=== PATIENT | female | born 1970 | race Caucasian/White ===

== ENCOUNTER 2021-03-05 18:20 | Inpatient (IN) | payer OTHER, SELFPAY ==
--- NOTE | ~2021-03-05 | XR_ITS ---
XR chest 1V portable DATE: 03/05/2021 18:54 INDICATION: Shortness of breath, fever, cough. Possible Covid exposure. TECHNIQUE: Portable upright AP chest on 03/05/2021 at 1848 hours COMPARISON: None FINDINGS: There are patchy bilateral pulmonary infiltrates or interstitial fibrosis, favoring the per ipheral lung moody and left lower lung. Normal heart size. No hilar or mediastinal enlargement. No pleural effusion or pulmonary vascular con gestion or pneumothorax. Included skeletal structures are unremarkable. IMPRESSION: Patchy bilateral interstitial infiltrate or fibrotic change, favoring the peripheral lung moody and left lower lung. Differential diagnosis includes interstitial fibrosis and/or pneumonia Reviewed, dictated and finalized at location A. IMPRESSION: Patchy bilateral interstitial infiltrate or fibrotic change, favori ng the peripheral lung moody and left lower lung. Differential diagnosis inclu rossy interstitial fibrosis and/or pneumonia
--- NOTE | ~2021-03-05 | XR_ITS ---
EXAMINATION: XR chest 1V portable DATE: 03/11/2021 05:54 INDICATION: Shortness of breath TECHNIQUE: frontal view of the chest was obtained. COMPARISON: Chest radiograph dated 03/05/2021 FINDINGS: Diffuse increased interstitial opacities with small patchy peripheral predominant opacities in the mi d and lower lung zones, left greater than right. No pleural effusion or pneumothorax. The cardiomedia stinal silhouette is within normal limits for AP technique. Old healed left sixth rib fracture. IMPRESSION: 1. Minimal change in mild diffuse bilateral lung disease which could represent chronic interstitial l jasmyne disease or in the acute setting pulmonary edema or pneumonia. Reviewed, dictated and finalized at location A. IMPRESSION: 1. Minimal change in mild diffuse bilateral lung disease which could represent chronic interstitial lung disease or in the acute setting pulmonary edema or pn eumonia.
[2021-03-05 18:21] VITALS: BP 102/66; PULSE 88; RESP 22; TEMP 38.4; O2SAT 94
--- NOTE | 2021-03-05 18:26 | ECG_ITS ---
Measurements Intervals [place] Rate: 87 P: 120 PA: 137 QRS: 161 QRSD: 88 T: 152 QT: 355 QTc: 428 Interpretive Statements SINUS RHYTHM ARM LEADS REVERSED INCOMPLETE RIGHT BUNDLE BRANCH BLOCK LOW VOLTAGE- PRECORDIAL LEADS BORDERLINE T WAVE ABNORMALITY- ANT/INF LEADS BORDERLINE ECG Electronically Signed On 03-05-2021 19:29:44 CDT by Alfredo Lucio D.O.
[2021-03-05 18:41] LABS: Basophils Percent Auto 0.4 % (0.2-1.2); Hematocrit 42.1 % (37.0-47.0); Hemoglobin 14.1 g/dL (12.0-15.0); Immature Granulocyte Absolute 0.06 K/mm3 (0.00-0.031); Immature Granulocyte Percent A 0.7 % (0-0.5); Lymphocytes Absolute Auto 1.12 K/mm3 (0.9-3.2); Lymphocytes Percent Auto 13.1 % (18.3-44.2); Mean Corpuscular HGB Conc 33.5 g/dl (32-36); Mean Corpuscular Hemoglobin 29.3 pg (26-34); Mean Corpuscular Volume 87.3 fl (80-100); Mean Platelet Volume 9.2 fl (7.4-10.4); Monocytes Absolute Auto 0.3 K/mm3 (0.1-0.6); Monocytes Percent Auto 3.4 % (2.6-8.5); Neutrophils Absolute Auto 7.1 K/mm3 (1.3-6.7); Neutrophils Percent Auto 82.4 % (45.5-73.1); Platelet Count Result 208 k/mm3 (150-375); Red Blood Count 4.82 M/mm3 (4.2-5.4); Red Cell Distribution Width 13.2 % (11.5-14.5); White Blood Count 8.6 K/mm3 (4.5-10.0)
[2021-03-05 19:08] LABS: EDCOVIDSCREEN Positive (Negative)
[2021-03-05 19:14] VITALS: BP 103/71; PULSE 85; RESP 29; O2SAT 95
[2021-03-05 19:18] LABS: Alanine Aminotransferase 53 U/L (4-35); Albumin Level 3.8 g/dL (3.5-5.1); Alkaline Phosphatase 80 U/L (38-126); Anion Gap 10 mmol/L (8-16); Aspartate Amino Transferase 85 U/L (14-36); Bilirubin,Total 0.6 mg/dL (0.2-1.3); Blood Urea Nitrogen 17 mg/dL (7-17); Calcium 8.7 mg/dL (8.4-10.2); Carbon Dioxide 25 mmol/L (22-30); Chloride 101 mmol/L (98-107); Estimated CRCL calculation 80 ml/min; Estimated Glomerular Filt Rate > 60; Glucose 101 mg/dL (65-110); Potassium 3.9 mmol/L (3.4-5.0); Sodium 136 mmol/L (137-145)
--- NOTE | 2021-03-05 19:21 | ED.GENADULT ---
HPI - General Adult General Chief complaint: Upper Respiratory Infection Stated complaint: fever Time Seen by Provider: 03/05/21 18:29 Source: patient History of Present Illness HPI narrative: Patient is a 50 y/o female complaining severe generalized weakness starting approximately 10 days ago. She has cough, fever and SOB. There is no known alleviating or exacerbating factor. She state that she is too weak to get out of bed to go to bathroom. She states that she has not been vaccinated against COVID. EMS reports that her RA sat was 82% and she placed on O2 via nasal canula. Related Data Home Medications Medication Instructions Recorded Confirmed No Home Medications 03/05/21 03/05/21 Allergies Allergy/AdvReac Type Severity Reaction Status Date / Time oxytocin Allergy Unknown Verified 03/05/21 18:49 Review of Systems Constitutional: Constitutional: Denies chills, Reports fever(s), Denies headache(s) and Reports weakness Eyes: Eyes: Denies blurry vision ENT: Denies headache(s) and Denies neck pain Cardiovascular: Cardiovascular: Denies chest pain and Reports dyspnea Respiratory: Respiratory: Reports cough and Reports dyspnea Gastrointestinal: Gastrointestinal: Denies abdominal pain, Reports diarrhea, Denies nausea and Denies vomiting Genitourinary: Genitourinary: Denies hematuria and Denies dysuria Musculoskeletal: Musculoskeletal: Denies back pain and Denies neck pain Neurologic: Denies headache(s) and Denies weakness [facility] Social History Social History Smoking status: Never smoker Alcohol intake: never Substance use: never Gender identity (if verbalized by the patient): Female Spiritual care concerns: No Exam Const: General: no acute distress and well developed Orientation/consciousness: oriented to person, oriented to place, oriented to time and patient oriented x3 HENMT: Head: normocephalic Ears: external ears normal General nose exam: Normal external nose present Eyes: General: appearance normal, both eyes and all related structures Conjunctivae: conjunctivae normal Neck: Neck: normal visual inspection and full ROM Chest: Chest palpation & inspection: normal inspection of the chest and no tenderness Resp: Effort & Inspection: tachypneic Auscultation: clear to auscultation bilaterally Cardio: Rate: regular rate Rhythm: regular rhythm GI: GI Palp: No abdominal tenderness and Yes Soft to palpation Skin: General skin exam: normal color and turgor normal Neuro: General: oriented to person, oriented to place, oriented to time and patient oriented x3 Cognition (Neuro): normal cognition Extrem: General: normal to inspection, full ROM and no pedal edema Psych: Appearance: grossly normal Mental Status: mental status grossly normal Affect: normal affect Course Consultations Consultation #1: Discussed with Dr. Martinez, who agrees to admit. Date: 03/05/21 Time: 19:30 Vital Signs Vital signs: Vital Signs Temperature 38.4 C H 03/05/21 18:21 Pulse Rate 88 03/05/21 18:21 Respiratory Rate 22 H 03/05/21 18:21 Blood Pressure 102/66 03/05/21 18:21 Pulse Oximetry 94 03/05/21 18:21 Temperature 36.7 C 03/05/21 23:40 Pulse Rate 78 03/05/21 23:43 Respiratory Rate 18 03/05/21 23:43 Blood Pressure 117/73 03/05/21 23:40 Pulse Oximetry 93 03/05/21 23:43 Medical Decision Making Vital Signs Vital Signs: Vital Signs Temperature 38.4 C H 03/05/21 18:21 Pulse Rate 88 03/05/21 18:21 Respiratory Rate 22 H 03/05/21 18:21 Blood Pressure 102/66 03/05/21 18:21 Pulse Oximetry 94 03/05/21 18:21 Temperature 36.7 C 03/05/21 23:40 Pulse Rate 78 03/05/21 23:43 Respiratory Rate 18 03/05/21 23:43 Blood Pressure 117/73 03/05/21 23:40 Pulse Oximetry 93 03/05/21 23:43 Lab Data Result diagrams: 03/05/21 18:32 03/05/21 18:32 Labs: Lab Results
[2021-03-05] MEDS: SODIUM CHLORIDE 0.9% IV 1,000 ML 999 ML IV CONT (20:04)
[2021-03-05] MEDS: ACETAMINOPHEN 325 MG TABLET 650 MG PO (20:04)
[2021-03-05] MEDS: DEXAMETHASONE SOD PHOS INJ 4 MG/ML VIAL 6 MG IV PUSH (20:04)
--- NOTE | 2021-03-05 20:04 | PC.NURSE ---
Called lab and spoke to emanuel about adding on PT/INR 2002
[2021-03-05 20:42] LABS: INR 0.9; Prothrombin Time 12.4 Seconds (11.1-14.7)
[2021-03-05 21:10] VITALS: BP 111/65; PULSE 76; RESP 20; TEMP 36.9; O2SAT 96; BMI 28.3
[2021-03-05] MEDS: REMDESIVIR 200 MG/NS 250 ML 200 MG/250 ML BAG 250 MG IVPB (22:11)
[2021-03-05 23:40] VITALS: BP 117/73; PULSE 78; RESP 18; TEMP 36.7; O2SAT 93
[2021-03-05 23:43] VITALS: PULSE 78; RESP 18; O2SAT 93
[2021-03-06] VITALS (12 sets, daily range): BP systolic 98–109; BP diastolic 61–73; PULSE 70–79; RESP 18–22; TEMP 36.3–36.7; O2SAT 88–93
--- NOTE | 2021-03-06 01:31 | PM.IMHP ---
H&P: HPI History of Present Illness Date/Time: 03/06/21 01:31 Chief Complaint: Fatigue Narrative: This is a 50-year-old female with known significant past medical history patient presented to the emergency room she arrived by EMS and according to EMS records her saturation was in the 80s% in room air at home. EMS was called due to generalized malaise, body aches and pains ,poor appetite, fatigue ,lack of energy, generalized weakness, can not get up from her bed on her own has not been eating as result of these, she has had diarrhea abdominal pain nausea and vomiting as well. She tested positive for COVID in our emergency room. Preliminary workup was significant for chest x-ray with infiltrates. She was placed on 4 L by nasal cannula and saturating at 92% at the time of my visit. Review of Systems Review of Systems: Likely low energy fatigue general malaise muscle weakness body aches and pains diarrhea abdominal pain nausea vomiting poor appetite Constitutional: Constitutional: Reports chills, Reports fatigue, Reports fever(s), Reports lethargy, Reports malaise, Reports poor appetite and Reports weakness Eyes: Eyes: Denies change in vision ENT: Denies dysphagia, Denies nasal congestion, Denies nasal discharge, Denies nasal obstruction and Denies odynophagia Cardiovascular: Cardiovascular: Denies edema, Denies irregular heart rhythm, Denies claudication, Denies leg edema, Denies radiating jaw, neck or arm pain, Denies palpitations and Reports dyspnea Respiratory: Respiratory: Denies cough and Reports dyspnea Gastrointestinal: Gastrointestinal: Reports diarrhea, Reports nausea and Reports vomiting Genitourinary: Genitourinary: Reports no additional female genitourinary complaints Musculoskeletal: Musculoskeletal: Reports myalgias and Reports muscle weakness Integumentary/Breasts: Skin/Breast: Reports system reviewed and no additional complaints, except as docu Neurologic: Reports system reviewed and no additional complaints, except as documented Psychiatric: Psychiatric: Reports no additional psychiatric complaints Endocrine: Endocrine: Reports no additional endocrine complaints Hematologic/Lymphatic: Hematologic/Lymphatic: Reports no additional hematologic/lymphatic complaints Allergic/Immunologic: Allergic/Immunologic: Reports no additional allergic/immunologic complaints [facility] Social History Social History Smoking status: Never smoker Alcohol intake: never Substance use: never Gender identity (if verbalized by the patient): Female Spiritual care concerns: No Meds Home Medications and Allergies Home Medications Medication Instructions Recorded Confirmed Type No Home Medications 03/05/21 03/05/21 History Allergies Allergy/AdvReac Type Severity Reaction Status Date / Time oxytocin Allergy Unknown Verified 03/05/21 18:49 Vital Signs Vital Signs - 24 hr 03/05/21 18:21 03/05/21 19:14 03/05/21 21:10 Temperature 101.2 F H 98.5 F Pulse Rate 88 85 76 Respiratory Rate 22 H 29 H 20 Blood Pressure 102/66 103/71 111/65 Pulse Oximetry 94 95 96 03/05/21 23:40 03/05/21 23:43 Temperature 98.1 F Pulse Rate 78 78 Respiratory Rate 18 18 Blood Pressure 117/73 Pulse Oximetry 93 93 Exam Const: General: comfortable, no acute distress, well developed, alert, awake and ill appearing acutely Nutritional Appearance: average body habitus Orientation/consciousness: patient oriented x3 HENMT: Head: normal to inspection, normocephalic and atraumatic Ears: hearing grossly normal bilaterally General nose exam: Normal external nose present Face and sinus: normal facial exam Mouth: Yes Normal oral and palatal mucosa present Eyes: General: appearance normal, both eyes and all related structures Alignment and Position: alignment normal Sclera: sclerae normal Pupils: Equal, round and reactive pupils present EOM: EOMs intact bilaterally Neck: Neck:
[2021-03-06 02:23] LABS: Alanine Aminotransferase 59 U/L (4-35); Estimated CRCL calculation 90 ml/min; Estimated Glomerular Filt Rate > 60
[2021-03-06 02:29] LABS: INR 0.9; Prothrombin Time 12.4 Seconds (11.1-14.7)
[2021-03-06] MEDS: DEXAMETHASONE SOD PHOS INJ 4 MG/ML VIAL 6 MG IV PUSH (09:30)
[2021-03-06] MEDS: ENOXAPARIN 40 MG/0.4 ML SYRINGE SUB-Q ×2 (09:30→20:09)
--- NOTE | 2021-03-06 14:12 | PM.IMPN ---
Progress Note: A&P Assessment and Plan (1) Pneumonia due to 2019 novel coronavirus: Code(s): U07.1 - COVID-19; J12.82 - Pneumonia due to coronavirus disease 2019 Status: Acute Assessment and Plan: Covid positive 03/05 remdesivir and dexamethasone Rocephin and Zithromax for extra coverage for antibacterial and atypicals Await cultures Deescalate antibiotics with culture results Trend sats Supplemental oxygen wean oxygen to maintain oxygen saturation greater than 94% Incentive spirometer Pap therapy (2) Acute respiratory failure with hypoxia: Code(s): J96.01 - Acute respiratory failure with hypoxia Status: Acute Assessment and Plan: On 4 L by nasal cannula Try and keep oxygen saturation at 94% Breathing treatments Incentive spirometry Pep therapy Subjective Date/time seen: 03/06/21 8:30 a.m. Interval history: Patient is a 50-year-old female who prefer visit to the emergency room for general weakness and fatigue. Patient stated that she originally came in for weakness fatigue body aches and inability to get up out of bed at home. She stated that she feels a lot better than she has. She did state that she was up and went to the bathroom today she does feel tired weak and fatigued however she did say that she did get good sleep last night. She did test positive for COVID on March 05. She did not get vaccinated and is considering getting vaccinated after the 3 month stephanie. Patient does not have any abdominal pain nausea, vomiting, shortness of breath, chest pain, productive cough. She did state that her stomach is growling and her mouth states like metal. Review of Systems Review of Systems: All systems reviewed & are unremarkable except as noted in HPI and below Exam Const: General: cooperative, comfortable, no acute distress, well developed, alert, awake, ill appearing acutely, lethargic and tired appearing Nutritional Appearance: average body habitus and well nourished Orientation/consciousness: oriented to person, oriented to place, oriented to time and patient oriented x3 Limitations: physical limitations HENMT: Head: normal to inspection, normocephalic and atraumatic Ears: hearing grossly normal bilaterally General nose exam: Normal external nose present Face and sinus: normal facial exam Mouth: Yes Normal oral and palatal mucosa present Eyes: General: appearance normal, both eyes and all related structures Alignment and Position: alignment normal Sclera: sclerae normal Pupils: Equal, round and reactive pupils present EOM: EOMs intact bilaterally Neck: Neck: normal visual inspection, full ROM, no lymphadenopathy, supple and no JVD Thyroid: thyroid normal Lymphatic: no lymphadenopathy noted Resp: Effort & Inspection: normal respiratory effort, able to speak in complete sentences, Actively coughing and tachypneic Auscultation: clear to auscultation bilaterally and diminished lung sounds Cardio: Jugular venous distension: no JVD Rate: regular rate Rhythm: regular rhythm Heart sounds: S1 normal heart sound present and S2 normal heart sound present GI: Inspection: normal to inspection : General: Yes deferred Skin: General skin exam: normal color Rashes: no rashes Wounds: no wounds Neuro: General: oriented to person, oriented to place, oriented to time, patient oriented x3, tone normal, moves all extremities and CN's II-XI intact bilaterally Cranial nerves: Yes CN's II-XII intact bilaterally and Yes Equal, round and reactive pupils present Cognition (Neuro): normal cognition Speech: normal speech Gait exam (Neuro): Normal gait present Motor exam (neuro): 5/5 motor strength present throughout Extrem: General: normal to inspection, full ROM, no joint enlargement and no pedal edema Right upper extremity: normal to inspection, full ROM and normal capillary refill Left upper extremity: normal to inspection, full ROM and normal capillary refill R
[2021-03-06] MEDS: REMDESIVIR 100 MG/NS 250 ML 100 MG/250 ML BAG 250 MG IVPB (21:58)
[2021-03-07] VITALS (9 sets, daily range): BP systolic 94–129; BP diastolic 63–79; PULSE 67–84; RESP 18–21; TEMP 35.6–37.1; O2SAT 91–97
[2021-03-07] MEDS: WATER FOR IRRIGATION, STERILE 1,000 ML BOTTLE 1000 ML (04:47)
[2021-03-07 06:10] LABS: Basophils Percent Auto 0.4 % (0.2-1.2); Immature Granulocyte Absolute 0.09 K/mm3 (0.00-0.031); Immature Granulocyte Percent A 1.1 % (0-0.5); Lymphocytes Absolute Auto 1.25 K/mm3 (0.9-3.2); Lymphocytes Percent Auto 15.4 % (18.3-44.2); Mean Corpuscular HGB Conc 33.3 g/dl (32-36); Mean Corpuscular Hemoglobin 29.5 pg (26-34); Mean Corpuscular Volume 88.4 fl (80-100); Mean Platelet Volume 9.4 fl (7.4-10.4); Monocytes Absolute Auto 0.4 K/mm3 (0.1-0.6); Neutrophils Absolute Auto 6.4 K/mm3 (1.3-6.7); Neutrophils Percent Auto 78.1 % (45.5-73.1); Platelet Count Result 316 k/mm3 (150-375); Red Blood Count 4.41 M/mm3 (4.2-5.4); Red Cell Distribution Width 13.3 % (11.5-14.5); White Blood Count 8.1 K/mm3 (4.5-10.0)
[2021-03-07 06:25] LABS: Prothrombin Time 13.1 Seconds (11.1-14.7)
[2021-03-07 06:32] LABS: Alanine Aminotransferase 62 U/L (4-35); Albumin Level 3.4 g/dL (3.5-5.1); Alkaline Phosphatase 66 U/L (38-126); Anion Gap 7 mmol/L (8-16); Aspartate Amino Transferase 68 U/L (14-36); Bilirubin,Total 0.2 mg/dL (0.2-1.3); Blood Urea Nitrogen 17 mg/dL (7-17); Carbon Dioxide 25 mmol/L (22-30); Chloride 104 mmol/L (98-107); Estimated CRCL calculation 90 ml/min; Estimated Glomerular Filt Rate > 60; Glucose 149 mg/dL (65-110); Potassium 3.2 mmol/L (3.4-5.0); Sodium 136 mmol/L (137-145)
[2021-03-07 08:21] LABS: Hepatitis B Surface Antigen Negative (Negative)
[2021-03-07 08:27] LABS: HAV RESULT Negative (Negative); Hepatitis B Core IgM Result Negative (Negative)
[2021-03-07] MEDS: ENOXAPARIN 40 MG/0.4 ML SYRINGE SUB-Q (08:37)
[2021-03-07] MEDS: POTASSIUM CHLORIDE 20 MEQ TABLET 40 MEQ PO (08:37)
[2021-03-07] MEDS: DEXAMETHASONE SOD PHOS INJ 4 MG/ML VIAL 6 MG IV PUSH (08:37)
[2021-03-07 08:39] LABS: Hepatitis C Virus Antibody Negative (Negative)
[2021-03-07 10:14] LABS: Platelet Estimate Adequate (Adequate)
--- NOTE | 2021-03-07 12:05 | PM.IMPN ---
Progress Note: A&P Assessment and Plan (1) Pneumonia due to 2019 novel coronavirus: Code(s): U07.1 - COVID-19; J12.82 - Pneumonia due to coronavirus disease 2019 Status: Acute Assessment and Plan: Covid positive 03/05 remdesivir and dexamethasone (Day 3) Rocephin and Zithromax for extra coverage for antibacterial and atypicals, will DC at this time (03/07/21) Antitussive for comfort Trend sats currently 91% on 10L high flow NC Supplemental oxygen wean oxygen to maintain oxygen saturation greater than 94% Incentive spirometer Pap therapy Education about prone and side laying therapy (2) Acute respiratory failure with hypoxia: Code(s): J96.01 - Acute respiratory failure with hypoxia Status: Acute Assessment and Plan: On 10 L high flow cannula Wean supplemental oxygen saturation at 94% Breathing treatments, albuterol inhaler for shortness of breath Incentive spirometry Pep therapy (3) Anxiety: Code(s): F41.9 - Anxiety disorder, unspecified Status: Acute Assessment and Plan: Patient experiences many episodes of anxiety that are causing her to vomit or become more short of breath Xanax 0.125mg PO TID has been added for further comfort Educated patient about this Time Spent With Patient Time with patient: Greater than 35 minutes Subjective Date/time seen: 03/07/21 10:15 Interval history: Patient is a 50 year old female that is here for COVID-19. Today patient states that she feels a lot better, however, she looks worse. She says that she gets very short of breath with coughing, and that she is coughing up clear, white, and red sputum. She attributes this to coughing too hard and straining. She also makes mention of anxiety problems through the night and this morning. She stated that she got really worked up last night while getting her remdesivir. She stated that the pump was continuously beeping and was getting to her that she got so worked up that she was having nausea and started to vomit. She also got very worked up this morning because she stated that the room was very hot and that the air was blowing on her face. This then made her very anxious as well. She is also on 10L high flow cannula. She does not have any complaints of chest pain, abdominal pain, nausea, vomiting, fevers, chills, or sweats. Education was also provided to patient about prone and side laying to help improve oxygenation. She stated that she could not lay on your stomach due to a torn ligament in her leg. Further teaching was given about why this was important and the increase demand of oxygen. She also inquired about wanting to go home. She was reminded that she is still on oxygen and that she would also need to finish out her medications. Review of Systems Review of Systems: All systems reviewed & are unremarkable except as noted in HPI and below Exam Const: General: cooperative, comfortable, well developed, alert, awake, acute distress moderate, respiratory and other (anxious), ill appearing acutely, lethargic and tired appearing Nutritional Appearance: average body habitus and well nourished Orientation/consciousness: oriented to person, oriented to place, oriented to time and patient oriented x3 Limitations: physical limitations HENMT: Head: normal to inspection, normocephalic and atraumatic Ears: hearing grossly normal bilaterally General nose exam: Normal external nose present Face and sinus: normal facial exam Mouth: Yes Normal oral and palatal mucosa present Eyes: General: appearance normal, both eyes and all related structures Alignment and Position: alignment normal Sclera: sclerae normal Pupils: Equal, round and reactive pupils present EOM: EOMs intact bilaterally Neck: Neck: normal visual inspection, full ROM, no lymphadenopathy, supple and no JVD Thyroid: thyroid normal Lymphatic: no lymphadenopathy noted Resp: Effort & Inspection: n
[2021-03-07] MEDS: ENOXAPARIN 80 MG/0.8 ML SYRINGE 75 MG SUB-Q (21:57)
[2021-03-07] MEDS: REMDESIVIR 100 MG/NS 250 ML 100 MG/250 ML BAG 250 MG IVPB (21:57)
[2021-03-08 03:41] VITALS: BP 100/64; PULSE 66; RESP 18; TEMP 36.6; O2SAT 92
[2021-03-08 06:29] LABS: Mean Corpuscular HGB Conc 32.5 g/dl (32-36); Mean Corpuscular Hemoglobin 29.1 pg (26-34); Mean Corpuscular Volume 89.5 fl (80-100); Platelet Count Result 353 k/mm3 (150-375); Red Blood Count 4.47 M/mm3 (4.2-5.4); Red Cell Distribution Width 13.2 % (11.5-14.5); White Blood Count 10.5 K/mm3 (4.5-10.0)
[2021-03-08 06:47] LABS: Magnesium 2.2 mg/dL (1.6-2.3)
[2021-03-08 06:52] LABS: Alanine Aminotransferase 55 U/L (4-35); Albumin Level 3.4 g/dL (3.5-5.1); Alkaline Phosphatase 80 U/L (38-126); Anion Gap 5 mmol/L (8-16); Aspartate Amino Transferase 52 U/L (14-36); Bilirubin,Total 0.5 mg/dL (0.2-1.3); Blood Urea Nitrogen 16 mg/dL (7-17); Calcium 8.9 mg/dL (8.4-10.2); Carbon Dioxide 26 mmol/L (22-30); Chloride 110 mmol/L (98-107); Estimated CRCL calculation 90 ml/min; Estimated Glomerular Filt Rate > 60; Glucose 109 mg/dL (65-110); Potassium 3.5 mmol/L (3.4-5.0); Sodium 141 mmol/L (137-145)
[2021-03-08 06:54] LABS: INR 1.1; Prothrombin Time 13.7 Seconds (11.1-14.7)
[2021-03-08 06:57] LABS: NT Pro B Type Natriuretic Pept 109 pg/mL (5-100)
[2021-03-08 08:00] VITALS: BP 93/55; PULSE 78; RESP 20; TEMP 36.5; O2SAT 100; O2SAT 90
[2021-03-08] MEDS: ENOXAPARIN 80 MG/0.8 ML SYRINGE 75 MG SUB-Q ×2 (08:17→21:30)
[2021-03-08] MEDS: ONDANSETRON INJ 4 MG/2 ML VIAL IV PUSH (08:17)
[2021-03-08] MEDS: DEXAMETHASONE SOD PHOS INJ 4 MG/ML VIAL 6 MG IV PUSH (08:17)
--- NOTE | 2021-03-08 10:51 | PM.IMPN ---
Progress Note: A&P Assessment and Plan (1) Pneumonia due to 2019 novel coronavirus: Code(s): U07.1 - COVID-19; J12.82 - Pneumonia due to coronavirus disease 2019 Status: Acute Assessment and Plan: Covid positive 03/05 remdesivir and dexamethasone (Day 4) Antitussive for comfort Trend sats currently 100% on 7L high flow NC Supplemental oxygen wean oxygen to maintain oxygen saturation greater than 94% Incentive spirometer Pap therapy Education about prone and side laying therapy (2) Acute respiratory failure with hypoxia: Code(s): J96.01 - Acute respiratory failure with hypoxia Status: Acute Assessment and Plan: On 7L high flow cannula Wean supplemental oxygen saturation at 94% Breathing treatments, albuterol inhaler for shortness of breath Incentive spirometry Pep therapy (3) Anxiety: Code(s): F41.9 - Anxiety disorder, unspecified Status: Acute Assessment and Plan: Patient experiences many episodes of anxiety that are causing her to vomit or become more short of breath Xanax 0.125mg PO TID has been added for further comfort Educated patient about this Subjective Date/time seen: 03/08/21 08:00 Interval history: Patient is a 50-year-old female who is here for COVID-19. Today patient states that she is just tired and that she still has a cough. She said she is also tired of lying in bed and that her butt is hurting from laying in bed. She also stated that she has a loss of appetite and still has the metallic taste in her mouth. She admits to a taste and a smell. She also stated that her cough has declined, but she still has some nasal congestion that is producing a clear mucous. She also had problems with nausea and vomiting, and is having a problem with PO intake at this time. She has been able to get up out of bed and stated that she does not have the same weakness that she had before coming to the hospital. She denies chest pain, fevers, sweats, chills. Patient is really having some problems with anxiety which then causes her to have shortness of breath with increased nausea and vomiting. Currently, she is on 7LNC and has been doing well with laying on her side and stomach. She also is wanting to go home. I explained that she is still on a lot of oxygen and that she needs to be more patient and not sheridan it. On a side note, she does not look that well. She is congested, and is needing oxygen. She also seems to get short of breath very easy. Review of Systems Review of Systems: All systems reviewed & are unremarkable except as noted in HPI and below Exam Const: General: cooperative, comfortable, well developed, alert, awake, acute distress moderate, respiratory and other (anxious), anxious, ill appearing acutely, lethargic and tired appearing Nutritional Appearance: average body habitus and well nourished Orientation/consciousness: oriented to person, oriented to place, oriented to time and patient oriented x3 Limitations: physical limitations HENMT: Head: normal to inspection, normocephalic and atraumatic Ears: hearing grossly normal bilaterally General nose exam: Normal external nose present Face and sinus: normal facial exam Mouth: Yes Normal oral and palatal mucosa present Eyes: General: appearance normal, both eyes and all related structures Alignment and Position: alignment normal Sclera: sclerae normal Pupils: Equal, round and reactive pupils present EOM: EOMs intact bilaterally Neck: Neck: normal visual inspection, full ROM, no lymphadenopathy, supple and no JVD Thyroid: thyroid normal Lymphatic: no lymphadenopathy noted Resp: Effort & Inspection: normal respiratory effort, able to speak in complete sentences, Actively coughing and tachypneic Auscultation: clear to auscultation bilaterally and diminished lung sounds Cardio: Jugular venous distension: no JVD Rate: regular rate Rhythm: regular rhythm Heart so
[2021-03-08 12:30] VITALS: BP 110/72; PULSE 73; RESP 20; TEMP 36.6; O2SAT 92
[2021-03-08] MEDS: BUMETANIDE INJ 1 MG/4 ML VIAL IV PUSH (12:30)
[2021-03-08 17:00] VITALS: BP 113/72; PULSE 81; RESP 20; TEMP 36.9; O2SAT 91
[2021-03-08 20:00] VITALS: BP 105/72; PULSE 82; RESP 18; TEMP 36.6; O2SAT 90
[2021-03-08] MEDS: REMDESIVIR 100 MG/NS 250 ML 100 MG/250 ML BAG 250 MG IVPB (21:30)
[2021-03-08 23:43] VITALS: BP 112/71; PULSE 71; RESP 18; TEMP 36.5; O2SAT 91
[2021-03-09] VITALS (8 sets, daily range): BP systolic 93–120; BP diastolic 59–79; PULSE 69–81; RESP 18–20; TEMP 36.1–37.2; O2SAT 90–95
[2021-03-09 06:46] LABS: Hematocrit 38.7 % (37.0-47.0); Hemoglobin 12.9 g/dL (12.0-15.0); Mean Corpuscular HGB Conc 33.3 g/dl (32-36); Mean Platelet Volume 9.1 fl (7.4-10.4); Platelet Count Result 370 k/mm3 (150-375); Red Cell Distribution Width 13.2 % (11.5-14.5); White Blood Count 10.7 K/mm3 (4.5-10.0)
[2021-03-09 07:01] LABS: Alanine Aminotransferase 50 U/L (4-35); Albumin Level 3.4 g/dL (3.5-5.1); Alkaline Phosphatase 73 U/L (38-126); Anion Gap 8 mmol/L (8-16); Aspartate Amino Transferase 45 U/L (14-36); Bilirubin,Total 0.4 mg/dL (0.2-1.3); Blood Urea Nitrogen 21 mg/dL (7-17); Calcium 8.9 mg/dL (8.4-10.2); Carbon Dioxide 25 mmol/L (22-30); Chloride 102 mmol/L (98-107); Estimated CRCL calculation 90 ml/min; Estimated Glomerular Filt Rate > 60; Glucose 100 mg/dL (65-110); Magnesium 2.4 mg/dL (1.6-2.3); Potassium 3.4 mmol/L (3.4-5.0); Prothrombin Time 13.4 Seconds (11.1-14.7); Sodium 135 mmol/L (137-145)
[2021-03-09] MEDS: ENOXAPARIN 80 MG/0.8 ML SYRINGE 75 MG SUB-Q ×2 (09:12→21:25)
[2021-03-09] MEDS: DEXAMETHASONE SOD PHOS INJ 4 MG/ML VIAL 6 MG IV PUSH (09:18)
--- NOTE | 2021-03-09 17:19 | PM.IMPN ---
Progress Note: A&P Assessment and Plan (1) Pneumonia due to 2019 novel coronavirus: Code(s): U07.1 - COVID-19; J12.82 - Pneumonia due to coronavirus disease 2019 Status: Acute Assessment and Plan: Covid positive 03/05 remdesivir and dexamethasone (Day 5) Antitussive for comfort Trend sats currently 91% on 1LNC Supplemental oxygen wean oxygen to maintain oxygen saturation greater than 94% Incentive spirometer Pap therapy Education about prone and side laying therapy (2) Acute respiratory failure with hypoxia: Code(s): J96.01 - Acute respiratory failure with hypoxia Status: Acute Assessment and Plan: On 1LNC sating 91% Wean supplemental oxygen saturation at 94% Breathing treatments, albuterol inhaler for shortness of breath Incentive spirometry Pep therapy (3) Anxiety: Code(s): F41.9 - Anxiety disorder, unspecified Status: Acute Assessment and Plan: Patient experiences many episodes of anxiety that are causing her to vomit or become more short of breath Xanax 0.125mg PO TID has been added for further comfort Educated patient about this Time Spent With Patient Time with patient: Greater than 35 minutes Subjective Date/time seen: 03/09/21 11:30 Interval history: Patient is a 50 year old female here for Covid 19. Patient is doing better today. She stated that she does not feel bad. She also stated that she has continuous congestion and nasal drainage because she has COPD. Patient was able to be titrated down to 1 L nasal cannula when I was in the room talking to her. She maintained a sat of 90% and above. Patient did say that her cough is getting better and that she has not really coughed at all today. She also stated that she was ready to go home. I explained her that when I put her on room air that she dropped to 88%. Patient will need a home O2 eval prior to discharge patient denies chest pain, shortness of breath, fevers, sweats, chills. Review of Systems Review of Systems: All systems reviewed & are unremarkable except as noted in HPI and below Exam Const: General: cooperative, comfortable, well developed, alert, awake, anxious, lethargic and tired appearing Nutritional Appearance: average body habitus and well nourished Orientation/consciousness: oriented to person, oriented to place, oriented to time and patient oriented x3 Limitations: physical limitations HENMT: Head: normal to inspection, normocephalic and atraumatic Ears: hearing grossly normal bilaterally General nose exam: Normal external nose present Face and sinus: normal facial exam Mouth: Yes Normal oral and palatal mucosa present Eyes: General: appearance normal, both eyes and all related structures Alignment and Position: alignment normal Sclera: sclerae normal Pupils: Equal, round and reactive pupils present EOM: EOMs intact bilaterally Neck: Neck: normal visual inspection, full ROM, no lymphadenopathy, supple and no JVD Thyroid: thyroid normal Lymphatic: no lymphadenopathy noted Resp: Effort & Inspection: normal respiratory effort, able to speak in complete sentences, Actively coughing and tachypneic Auscultation: clear to auscultation bilaterally and diminished lung sounds Cardio: Jugular venous distension: no JVD Rate: regular rate Rhythm: regular rhythm Heart sounds: S1 normal heart sound present and S2 normal heart sound present Peripheral pulses: Peripheral pulses 2+ throughout GI: Inspection: normal to inspection : General: Yes deferred Skin: General skin exam: normal color Lesions: no lesions Rashes: no rashes Trauma: no lacerations or abrasions Wounds: no wounds Nails: normal Neuro: General: oriented to person, oriented to place, oriented to time, patient oriented x3, tone normal, moves all extremities and CN's II-XI intact bilaterally Cranial nerves: Yes CN's II-XII intact bilaterally and Yes Equal, round and reactive pupils pres
[2021-03-09] MEDS: REMDESIVIR 100 MG/NS 250 ML 100 MG/250 ML BAG 250 MG IVPB (21:24)
[2021-03-10] VITALS (13 sets, daily range): BP systolic 90–112; BP diastolic 63–72; PULSE 70–91; RESP 16–20; TEMP 35.9–36.8; O2SAT 83–95
[2021-03-10 06:13] LABS: Basophils Absolute Auto 0.1 K/mm3 (0.0-0.1); Basophils Percent Auto 0.6 % (0.2-1.2); Eosinophils Absolute Auto 0.1 K/mm3 (0-0.3); Eosinophils Percent Auto 0.6 % (0-4.4); Hematocrit 39.3 % (37.0-47.0); Hemoglobin 12.9 g/dL (12.0-15.0); Immature Granulocyte Absolute 0.51 K/mm3 (0.00-0.031); Immature Granulocyte Percent A 5.4 % (0-0.5); Lymphocytes Absolute Auto 1.83 K/mm3 (0.9-3.2); Lymphocytes Percent Auto 19.3 % (18.3-44.2); Mean Corpuscular HGB Conc 32.8 g/dl (32-36); Mean Corpuscular Hemoglobin 29.1 pg (26-34); Mean Corpuscular Volume 88.5 fl (80-100); Mean Platelet Volume 8.8 fl (7.4-10.4); Monocytes Absolute Auto 0.3 K/mm3 (0.1-0.6); Monocytes Percent Auto 3.6 % (2.6-8.5); Neutrophils Absolute Auto 6.7 K/mm3 (1.3-6.7); Neutrophils Percent Auto 70.5 % (45.5-73.1); Platelet Count Result 398 k/mm3 (150-375); Red Blood Count 4.44 M/mm3 (4.2-5.4); Red Cell Distribution Width 13.2 % (11.5-14.5); White Blood Count 9.5 K/mm3 (4.5-10.0)
[2021-03-10 06:26] LABS: INR 1.1; Prothrombin Time 13.9 Seconds (11.1-14.7)
[2021-03-10 06:28] LABS: Alanine Aminotransferase 46 U/L (4-35); Albumin Level 3.4 g/dL (3.5-5.1); Alkaline Phosphatase 69 U/L (38-126); Anion Gap 8 mmol/L (8-16); Aspartate Amino Transferase 37 U/L (14-36); Bilirubin,Total 0.5 mg/dL (0.2-1.3); Blood Urea Nitrogen 19 mg/dL (7-17); Calcium 8.8 mg/dL (8.4-10.2); Carbon Dioxide 24 mmol/L (22-30); Chloride 108 mmol/L (98-107); Estimated CRCL calculation 90 ml/min; Estimated Glomerular Filt Rate > 60; Glucose 112 mg/dL (65-110); Magnesium 2.3 mg/dL (1.6-2.3); Potassium 3.7 mmol/L (3.4-5.0); Sodium 140 mmol/L (137-145)
[2021-03-10] MEDS: DEXAMETHASONE SOD PHOS INJ 4 MG/ML VIAL 6 MG IV PUSH (09:45)
[2021-03-10] MEDS: ENOXAPARIN 80 MG/0.8 ML SYRINGE 75 MG SUB-Q ×2 (09:46→20:34)
[2021-03-10] MEDS: ALPRAZolam (*CRX) 0.125 MG TABLET PO ×2 (09:49→20:34)
--- NOTE | 2021-03-10 15:37 | PM.IMPN ---
Progress Note: A&P Assessment and Plan (1) Pneumonia due to 2019 novel coronavirus: Code(s): U07.1 - COVID-19; J12.82 - Pneumonia due to coronavirus disease 2019 Status: Acute Assessment and Plan: Covid positive 03/05 remdesivir and dexamethasone completed 03/09/21 Antitussive for comfort Trend sats currently 91% on 1LNC Supplemental oxygen wean oxygen to maintain oxygen saturation greater than 94% Incentive spirometer Pap therapy Education about prone and side laying therapy (2) Acute respiratory failure with hypoxia: Code(s): J96.01 - Acute respiratory failure with hypoxia Status: Acute Assessment and Plan: On 1LNC sating 91% Wean supplemental oxygen saturation at 94% Breathing treatments, albuterol inhaler for shortness of breath Incentive spirometry Pep therapy (3) Anxiety: Code(s): F41.9 - Anxiety disorder, unspecified Status: Acute Assessment and Plan: Patient experiences many episodes of anxiety that are causing her to vomit or become more short of breath Xanax 0.125mg PO TID has been added for further comfort Educated patient about this Subjective Date/time seen: 03/10/21 14:15 Interval history: Patient is a 50-year-old female who is here for COVID-19. Patient stated that she is feeling okay today. She is on 1 L satting about 91%. We did have her on room air for little bit however when she has any activity she does desat to the 70s. Patient is really ready to go home labs are stable however tomorrow is her last day of 10 doses of Decadron and she has completed her remdesivir. It might just be alvarado to keep her for 1 more day. Patient denies chest pain, shortness of breath, fevers, sweats, chills. Review of Systems Review of Systems: All systems reviewed & are unremarkable except as noted in HPI and below Exam Const: General: cooperative, comfortable, well developed, alert, awake, anxious and tired appearing Nutritional Appearance: average body habitus and well nourished Orientation/consciousness: oriented to person, oriented to place, oriented to time and patient oriented x3 Limitations: physical limitations HENMT: Head: normal to inspection, normocephalic and atraumatic Ears: hearing grossly normal bilaterally General nose exam: Normal external nose present Face and sinus: normal facial exam Mouth: Yes Normal oral and palatal mucosa present Eyes: General: appearance normal, both eyes and all related structures Alignment and Position: alignment normal Sclera: sclerae normal Pupils: Equal, round and reactive pupils present EOM: EOMs intact bilaterally Neck: Neck: normal visual inspection, full ROM, no lymphadenopathy, supple and no JVD Thyroid: thyroid normal Lymphatic: no lymphadenopathy noted Resp: Effort & Inspection: normal respiratory effort, able to speak in complete sentences, Actively coughing and tachypneic Auscultation: clear to auscultation bilaterally and diminished lung sounds Cardio: Jugular venous distension: no JVD Rate: regular rate Rhythm: regular rhythm Heart sounds: S1 normal heart sound present and S2 normal heart sound present Peripheral pulses: Peripheral pulses 2+ throughout GI: Inspection: normal to inspection : General: Yes deferred Skin: General skin exam: normal color Lesions: no lesions Rashes: no rashes Trauma: no lacerations or abrasions Wounds: no wounds Nails: normal Neuro: General: oriented to person, oriented to place, oriented to time, patient oriented x3, tone normal, moves all extremities and CN's II-XI intact bilaterally Cranial nerves: Yes CN's II-XII intact bilaterally and Yes Equal, round and reactive pupils present Cognition (Neuro): normal cognition Speech: normal speech Gait exam (Neuro): Normal gait present Motor exam (neuro): 5/5 motor strength present throughout Extrem: General: normal to inspection, full ROM, no joint enlargement and no pedal edema
[2021-03-10] MEDS: BUMETANIDE INJ 1 MG/4 ML VIAL IV PUSH (17:13)
[2021-03-11] VITALS (7 sets, daily range): BP systolic 91–109; BP diastolic 61–73; PULSE 70–105; RESP 18–20; TEMP 35.6–36.5; O2SAT 90–98
[2021-03-11 06:24] LABS: Hematocrit 40.9 % (37.0-47.0); Hemoglobin 13.7 g/dL (12.0-15.0); Mean Corpuscular HGB Conc 33.5 g/dl (32-36); Mean Corpuscular Hemoglobin 29.5 pg (26-34); Mean Corpuscular Volume 88.1 fl (80-100); Mean Platelet Volume 8.8 fl (7.4-10.4); Platelet Count Result 489 k/mm3 (150-375); Red Blood Count 4.64 M/mm3 (4.2-5.4); Red Cell Distribution Width 13.3 % (11.5-14.5); White Blood Count 9.3 K/mm3 (4.5-10.0)
[2021-03-11 06:44] LABS: Alanine Aminotransferase 42 U/L (4-35); Albumin Level 3.7 g/dL (3.5-5.1); Alkaline Phosphatase 83 U/L (38-126); Anion Gap 9 mmol/L (8-16); Aspartate Amino Transferase 35 U/L (14-36); Bilirubin,Total 0.4 mg/dL (0.2-1.3); Blood Urea Nitrogen 19 mg/dL (7-17); Calcium 9.2 mg/dL (8.4-10.2); Carbon Dioxide 27 mmol/L (22-30); Chloride 99 mmol/L (98-107); Estimated CRCL calculation 78 ml/min; Estimated Glomerular Filt Rate > 60; Glucose 134 mg/dL (65-110); Magnesium 2.4 mg/dL (1.6-2.3); Potassium 3.5 mmol/L (3.4-5.0); Sodium 135 mmol/L (137-145)
[2021-03-11] MEDS: DEXAMETHASONE SOD PHOS INJ 4 MG/ML VIAL 6 MG IV PUSH (09:04)
[2021-03-11] MEDS: POTASSIUM CHLORIDE 20 MEQ TABLET 40 MEQ PO (09:04)
[2021-03-11] MEDS: ENOXAPARIN 80 MG/0.8 ML SYRINGE 75 MG SUB-Q (09:04)
[2021-03-11 09:38] LABS: D Dimer 0.48 ug/mL (<0.48)
[2021-03-11 09:52] LABS: Lactate Dehydrogenase 1140 U/L (313-618)
--- NOTE | 2021-03-11 14:33 | PM.DS ---
DS: Admitting Diagnosis Admitting Diagnosis COVID-19 DS: Discharge Diagnosis Discharge Diagnosis (1) Pneumonia due to 2019 novel coronavirus: Code(s): U07.1 - COVID-19; J12.82 - Pneumonia due to coronavirus disease 2019 Status: Acute Assessment and Plan: Covid positive 03/05 remdesivir and dexamethasone completed 03/09/21 Antitussive for comfort Trend sats currently 91% on 1LNC Supplemental oxygen wean oxygen to maintain oxygen saturation greater than 94% Incentive spirometer Pap therapy Education about prone and side laying therapy (2) Acute respiratory failure with hypoxia: Code(s): J96.01 - Acute respiratory failure with hypoxia Status: Acute Assessment and Plan: On 1LNC sating 91% Wean supplemental oxygen saturation at 94% Breathing treatments, albuterol inhaler for shortness of breath Incentive spirometry Pep therapy (3) Anxiety: Code(s): F41.9 - Anxiety disorder, unspecified Status: Acute Assessment and Plan: Patient experiences many episodes of anxiety that are causing her to vomit or become more short of breath Xanax 0.125mg PO TID has been added for further comfort Educated patient about this DS: Summary Hospital Course Reason for hospitalization: Date of service 03/11/2021 at 2:30 p.m. Hospital Course: Patient is a 50-year-old female who is here for COVID-19. Patient received full 5 days of remdesivir and Decadron. Since admission patient got up to 7 L nasal cannula and has been titrated down since. Patient is currently on intermittent 1 L and will have a home O2 eval prior to discharge. Patient states she feels better in that she is ready to go home. Chest x-ray did show a little bit interstitial disease possibly pulmonary edema patient will receive 1 dose of Lasix prior to discharge. Inflammatory markers are still elevated according to the labs however other labs are stable and have been since admission. Patient denies chest pain, shortness of breath, nausea, vomiting, diarrhea, fever, sweats, chills. I did have a long conversation with the patient about oxygen use. I explained her that is unacceptable to send somebody home on a oxygen that is greater than 1-2 L. I personally did a walk test in the room with her and made her walk back and forth to the bathroom while monitoring her SpO2 for a full 6-10 minutes. Her SpO2 dropped to 88% at 1 time on room air however she recovered quickly. On 1 L nasal cannula patient was satting 91 92%. I did explain the risks of discharge at this time, and I also explained to the patient that I felt like her chest x-ray was worse than when she was admitted. Patient is pretty insistent on going home she said the food socks and she is uncomfortable. She would like to have [employer]. Patient is aware of signs that she should be watching for to indicate worsening disease. Status at Discharge Functional status at discharge: independent ambulation Overall status at discharge: patient is progressing back to baseline Time Spent with Patient Time attestation: Total time spent providing and/or coordinating discharge services: 72 minutes Time spent: Greater than 30 minutes Specific discharge activities: Lab, chart, diagnostic review, education, documentation, physical exam Exam Const: General: cooperative, healthy appearing, comfortable, no acute distress, well developed, alert, awake and Physically active Nutritional Appearance: average body habitus and well nourished Orientation/consciousness: oriented to person, oriented to place, oriented to time and patient oriented x3 Limitations: no limitations HENMT: Head: normal to inspection, normocephalic and atraumatic Ears: hearing grossly normal bilaterally General nose exam: Normal external nose present Face and sinus: normal facial exam Mouth: Yes Normal oral and palatal mucosa present Eyes: General: appearance normal, both eyes and all rel
[2021-03-11] MEDS: FUROSEMIDE INJ 40 MG/4 ML VIAL IV PUSH (14:34)
--- NOTE | 2021-03-11 17:40 | PCRCNOTE ---
HOME O2 EVALUATION COMPLETED. PT DOES NOT REQUIRE HOME O2
== END 2021-03-11 18:40 | disposition home or self-care (01) | DRG 177 ==
LOC: ANHED 18:39 → ANH3MEDSUR 21:31
PROVIDERS: Emergency Medicine; Nurse Practitioner; Admitting Provider Internal Medicine; Emergency Provider Emergency Medicine; Visit Provider Internal Medicine
DX: U07.1 COVID-19 (principal); J12.82 Pneumonia due to coronavirus disease 2019; J96.01 Acute respiratory failure with hypoxia; F41.9 Anxiety disorder, unspecified
CPT/HCPCS: 36415; 71045; 80053; 80074; 82565; 82728; 83615; 83735; 83880; 84460; 85025; 85027; 85380; 85610; 86140; 87426; 93005; 94618; 94640; 94667; 99291; A9270; C9803; J0456; J0696; J1100; J1650; J1940; J2405; J7030